=== PATIENT | female | born 1965 | race Caucasian/White ===

== ENCOUNTER 2017-04-22 14:30 | Emergency (ER) | payer OTHER ==
[~2017-04-22] VITALS: Ht 165.1 cm; Wt 113.0 kg
[2017-04-22 14:31] VITALS: Ht 165.1 cm; Wt 113.0 kg
[2017-04-22] MEDS ORDERED: SOD CHLORIDE 0.9% 1,000 ML IV STA (15:53)
--- NOTE | 2017-04-22 16:23 | RADRPT ---
PROCEDURE: XR Chest. CLINICAL INDICATION: Chest pain TECHNIQUE: Single frontal chest x-ray. COMPARISON: 06/12/2013 FINDINGS: The lungs are clear of acute infiltrates, edema, effusions, or masses.. The cardiomediastinal silho uette is unremarkable. The osseous structures are intact. IMPRESSION: No acute cardiopulmonary disease. RPTAT: CC .Rigo Frias MD, MD Date Time Electronically viewed and signed by .Rigo Frias MD, on 04/22/2017 16:23 .L/
[2017-04-22] MEDS ORDERED: METO-429 PO (16:34)
[2017-04-22] MEDS ORDERED: ASPI325T4 PO (16:35)
[2017-04-22 16:46] LABS: BASOPHILS % 0.5 % (0.0-2.0); EOSINOPHILS # 0.1 10^3/ul (0.0-0.5); EOSINOPHILS % 1.7 % (0.0-7.0); HEMATOCRIT 41.7 % (37.0-47.0); HEMOGLOBIN 14.2 g/dl (12.0-16.0); LYMPHOCYTES # 1.8 10^3/ul (0.8-2.9); LYMPHOCYTES % 21.2 % (15.0-51.0); MEAN CORPUSCULAR HEMOGLOBIN 27.3 pg (29.0-33.0); MEAN CORPUSCULAR HGB CONC 34.1 g/dl (32.0-37.0); MEAN CORPUSCULAR VOLUME 80.2 fl (82.0-101.0); MEAN PLATELET VOLUME 11.4 fl (7.4-10.4); MONOCYTE # 0.6 10^3/ul (0.3-0.9); MONOCYTES % 6.6 % (0.0-11.0); NEUTROPHIL # 5.8 10^3/ul (1.6-7.5); NEUTROPHILS % 69.8 % (39.0-77.0); PLATELET COUNT 235 10^3/UL (140-415); RED CELL DISTRIBUTION WIDTH 13.7 % (11.5-14.5); WHITE BLOOD COUNT 8.3 10^3/ul (4.8-10.8)
[2017-04-22 16:48] LABS: INR 0.91; PROTIME 12.3 Sec (12.2-14.2)
[2017-04-22 16:49] LABS: PARTIAL THROMBOPLASTIN TIME 29.4 Sec (25.0-35.0)
[2017-04-22 16:53] LABS: LACTIC ACID 1.8 mmol/L (0.5-2.0)
[2017-04-22 16:54] LABS: ALANINE AMINOTRANSFERASE 27 IU/L (13-69); ALBUMIN 4.3 g/dl (3.3-4.9); ALBUMIN/GLOBULIN RATIO 1.26; ALKALINE PHOSPHATASE 85 IU/L (42-121); AMYLASE 55 U/L (11-123); ANION GAP 21 (8-16); ASPARTATE AMINO TRANSFERASE 15 IU/L (15-46); BILIRUBIN,INDIRECT 0.1 mg/dl (0-1.1); BILIRUBIN,TOTAL 0.1 mg/dl (0.2-1.3); BLOOD UREA NITROGEN 16 mg/dl (7-20); CALCIUM 9.6 mg/dl (8.4-10.2); CARBON DIOXIDE 29 mmol/L (21-31); CHLORIDE 100 mmol/L (97-110); CREATINE KINASE 37 IU/L (23-200); GLUCOSE 92 mg/dl (70-220); POTASSIUM 4.2 mmol/L (3.5-5.1); SODIUM 146 mmol/L (135-144); TOTAL PROTEIN 7.7 g/dl (6.1-8.1)
[2017-04-22] MEDS ORDERED: HYDROmorphONE 1 MG/ML SYG IV STA ×2 (16:57→18:52)
[2017-04-22] MEDS ORDERED: ONDANSETRON 4 MG INJ IV STA ×2 (16:57→18:52)
[2017-04-22 17:05] LABS: AMMONIA < 9 umol/l (9-30)
[2017-04-22 17:06] LABS: CK-MB 0.25 ng/ml (0.0-2.4)
[2017-04-22 17:11] LABS: T3 UPTAKE 25.6 % (23.5-40.5)
[2017-04-22 17:13] LABS: TROPONIN-I < 0.012 ng/ml (0.00-0.12)
--- NOTE | 2017-04-22 18:00 | RADRPT ---
PROCEDURE: CT brain without contrast CLINICAL INDICATION: Altered mental status TECHNIQUE: CT of the brain without contrast was performed on a multidetector CT scanner, with multi planar reformats. One or more of the following dose reduction techniques were used: Automated expos ure control, adjustment in mA and / or kV according to patient size, use of iterative reconstructive technique. CTDIvol = 41 mGy; DLP = 720 mGy-cm. COMPARISON: None available FINDINGS: No acute intracranial hemorrhage is identified. No extra-axial fluid collection is seen. There is no mass effect. No midline shift is identified. Ventricles and sulci are within normal limits for size and configuration. The density of the brain is within normal limits. Medrano-white differentiation is preserved. Osseous structures are unremarkable. Mastoid air cells and imaged paranasal sinuses grossly clear. IMPRESSION: Unremarkable noncontrast CT of the brain. RPTAT: VV .Davon Flor MD, MD Date Time Electronically viewed and signed by .Davon Flor MD, on 04/22/2017 18:00 .O/
--- NOTE | 2017-04-22 18:07 | RADRPT ---
PROCEDURE: CT abdomen and pelvis without IV contrast. CLINICAL INDICATION: Abdominal pain TECHNIQUE: CT scan of the abdomen and pelvis without contrast was performed on the [employer] volumetric [address] scanner. The patient was scanned without intravenous contrast. Coronal and sagittal refo rmatted images were obtained from the axial source images. The CTDI vol is 23.19 mGy and the DLP is 1381.14 mGy-cm. COMPARISON: None. FINDINGS: CT abdomen: Mild dependent bibasilar atelectasis is seen. Focal ground-glass opacity in the lingula is seen. T he remaining lung bases are clear. The heart size is not enlarged and is without pericardial thicke linus or effusion. The liver is normal and density and is without focal mass or intrahepatic biliary dilatation. The li pari is mildly enlarged measuring 20.6 cm in size. The spleen is mildly enlarged measuring 13.5 cm i n size. The spleen is homogeneous in density. A small hiatal hernia is seen. The stomach is otherwi se grossly unremarkable. The pancreas as visualized is normal. Layering gallstones are seen. No c ommon bile duct dilatation is seen. The adrenal glands are symmetric and normal. The kidneys are sy mmetrically unremarkable as well. Residual contrast in the collecting systems is seen from prior con trast enhanced exam. A fat containing lesion in the left kidney is seen measuring 1.6 cm in size. N o renal calculus or obstructive uropathy or mass lesion is seen. The aorta is of normal in caliber. There is no retroperitoneal lymphadenopathy. The agustín hepatis region is clear. The large bowel is stool-filled. The small and large bowel and mesentery, as visua lized, are otherwise unremarkable. The normal appendix is identified. CT pelvis: The uterus is absent. The pelvic sidewalls and inguinal regions are clear. No pelvic mass, lymphad enopathy, or free fluid is seen. No acute inflammation is seen. The urinary bladder is within norm al limits. A sclerotic foci in the right iliac bone is seen measuring 6 mm in size and may represent a bone isl and. No osteolytic lesion is detected. IMPRESSION: 1. Focal ground-glass opacity in the lingula, questionable this represents scarring versus infiltra te. 2. No acute pathology in the abdomen and pelvis. 3. Stool filled large bowel. 4. Residual contrast in the bilateral collecting systems from a prior contrast enhanced exam. 5. Cholelithiasis. 6. Small fat containing lesion in the left kidney consistent with an angiomyolipoma. RPTAT: HPNM Guzman Zaidi Physician Date Time Electronically viewed and signed by Guzman Zaidi Physician on 04/22/2017 18:07 /
--- NOTE | 2017-04-22 18:10 | ERD ---
ER Documentation Chief Complaint Date/Time DATE: 04/22/17 TIME: 18:06 Chief Complaint n/v x 1 week and throat pain/swelling x yesterday HPI This is a 51-year-old female that presents to the emergency department complaining of 1 week of generalized myalgias, nausea and one episode of nonbloody nonbilious emesis. The patient indicates that yesterday when she awoke she had difficulty swallowing and a sore throat. She went to [facility] and radiographic imaging indicated there is a thyroid mass. She stated they did a CT scan of the neck with contrast and indicated there is a mass in the thyroid of unknown etiology and for her to follow-up with her primary care physician. Her PCP is Dr. Lisandro Short. She was unable to get an appointment today and therefore came to the emergency department to be further evaluated as she was concerned with worsening of her symptoms as she awoke this morning with swelling of her feet. She denies any calf tenderness. She is no shortness of breath at rest or exertion. She indicates that the difficulty in swallowing has improved and she denies any swelling around the neck. She has had no fevers no shaking or chills. She has had decreased urinary output over the past several days and bilateral flank pain. Her mother of lung carcinoma and her father of gallbladder carcinoma. She denies any chest pain or pressure that radiates to the neck arm back or jaw she has no shortness of breath at rest or exertion peer ROS All systems reviewed and are negative except as per history of present illness. Medications Home Meds Reported Medications Aspirin* (Aspirin*) 325 Mg Tablet, 325 MG PO DAILY, TAB 04/22/17 Metoprolol Tartrate* (Lopressor*) 50 Mg Tab, 50 MG PO BID, #60 TAB 04/22/17 Allergies Allergies: Coded Allergies: morphine (Verified Allergy, Unknown, ITCHY,HIVES, 04/22/17) PMhx/Soc History of Surgery: Yes (HYSTERECTOMY, ) Hx Cardiac Disorders: Yes (HTN) Hx Alcohol Use: No Hx Substance Use: No Hx Tobacco Use: No Physical Exam Vitals Vital Signs Date Time Temp Pulse Resp B/P Pulse Ox O2 Delivery O2 Flow Rate FiO2 04/22/17 18:33 98.6 62 17 127/85 100 Room Air 04/22/17 16:59 60 18 107/73 100 Room Air 04/22/17 14:31 98.9 68 19 135/81 100 Physical Exam Constitutional:Well-developed. Well-nourished. HEENT:Normocephalic. Atraumatic.Pupils were equal round reactive to light. Moist mucous membranes.No tonsillar exudates. Funduscopy exam shows sharp optic disc bilaterally and venous pulsations are present. Neck: No nuchal rigidity. No lymphadenopathy. No posterior cervical spine tenderness or step-offs. Thyroid was palpable with no subcutaneous emphysema or expanding neck hematoma or tenderness. No erythremia of the neck. Respiratory: Not using accessory muscles of respiration.Lungs were clear to auscultation bilaterally. No rhonchi. No rales. No wheezing. Cardiovascular: Regular rate regular rhythm.No murmurs. No rubs were appreciated.S1, S2 normal. Distal pulses are palpable 2+ bilaterally. GI: Abdomen was soft. Nontender. Non Distended. No pulsatile abdominal masses or bruits. No rebound. No guarding. Bowel sounds were present and normal. Bilateral CVA tenderness Muscle skeletal: Full range of motion of both the upper and lower extremities bilaterally.Normal muscle tone.No assymetrical calf tenderness or swelling. 1+ pitting edema the dorsal aspects of the bilateral feet extending to the distal third of the lower extremity. Skin: No petechia, no purpura. No lesions on the palms or the soles of the feet. No maculopapular rash. NEURO: Patient was alert, awake, orientated x3.No facial droop. Gait observed and normal with no ataxia.Speech had regular rate and rhythm. No focal neurological deficits. Result Diagram: 04/22/17 1615 04/22/17 1615 Results 24 hrs Laboratory Tests Test 04/22/17 16:15 White Blood Count 8.310^3/ul Red Blood Count 5.2010^6/ul Hemoglobin 14.2g/dl Hematocrit 41.7% Mean Corpuscular Volume 80.2fl Mean Corpuscular Hemoglobin 27.3pg Mean Corpuscular Hemoglobin Concent 34.1g/dl Red Cell Distribution Width 13.7% Platelet Count 45527^3/UL Mean Platelet Volume 11.4fl Neutrophils % 69.8% Lymphocytes % 21.2% Monocytes % 6.6% Eosinophils % 1.7% Basophils % 0.5% Nucleated Red Blood Cells % 0.0/100WBC Neutrophils # 5.810^3/ul Lymphocytes # 1.810^3/ul Monocytes # 0.610^3/ul Eosinophils # 0.110^3/ul Basophils # 0.010^3/ul Nucleated Red Blood Cells # 0.010^3/ul Prothrombin Time 12.3Sec Prothrombin Time Ratio 1.0 INR International Normalized Ratio 0.91 Activated Partial Thromboplast Time 29.4Sec Sodium Level 146mmol/L Potassium Level 4.2mmol/L Chloride Level 100mmol/L Carbon Dioxide Level 29mmol/L Anion Gap 21 Blood Urea Nitrogen 16mg/dl Creatinine 1.00mg/dl Glucose Level 92mg/dl Hemoglobin A1c 5.7% Lactic Acid Level 1.8mmol/L Calcium Level 9.6mg/dl Total Bilirubin 0.1mg/dl Direct Bilirubin 0.00mg/dl Indirect Bilirubin 0.1mg/dl Aspartate Amino Transf (AST/SGOT) 15IU/L Alanine Aminotransferase (ALT/SGPT) 27IU/L Alkaline Phosphatase 85IU/L Ammonia < 9umol/l Creatine Kinase 37IU/L Creatine Kinase Index 0.7 Creatinine Kinase MB (Mass) 0.25ng/ml Troponin I < 0.012ng/ml Total Protein 7.7g/dl Albumin 4.3g/dl Globulin 3.40g/dl Albumin/Globulin Ratio 1.26 Amylase Level 55U/L Lipase 97U/L Free Thyroxine Index 2.46ug/ml Thyroxine (T4) 9.6ug/dl Triiodothyronine (T3) Uptake 25.6% Current Medications Medications (Trade) Dose Ordered Sig/Elizabeth Route PRN Reason Start Time Stop Time Status Last Admin Dose Admin Sodium Chloride (NS) 1,000 ml @ 1,000 mls/hr Q1H STAT IV 04/22/17 15:53 04/22/17 16:52 DC 04/22/17 16:35 Ondansetron HCl (Zofran Inj) 4 mg ONCE STAT IV 04/22/17 16:57 04/22/17 16:59 DC 04/22/17 17:14 Hydromorphone HCl (Dilaudid) 1 mg ONCE STAT IV 04/22/17 16:57 04/22/17 16:59 DC 04/22/17 17:14 Procedures/MDM This patient presented to the emergency department generalized myalgias abdominal pain nausea vomiting and a recent thyroid mass. The patient was immediately placed in a cribber continuous pulse oximetry and IV access was established by nursing staff . I obtained a 12-lead EKG tracing to rule out atypical myocardial infarction. 12 Lead EKG tracing ordered and reviewed by myself showed: Normal sinus rhythm of 62 bpm and no arrhythmia. NE interval normal. QRS duration normal. No ST segment elevation No ST segment depression. No changes consistent with acute ischemia. I did not repeat the patient's CT scan of her neck she already had the results of the thyroid mass. Given her symptoms I did obtain a CT scan of the patient' s head reviewed by myself the radiologist as well as a CT of the abdomen and pelvis which showed no acute intracerebral hemorrhage mass-effect or midline shift. The CT of the abdomen and pelvis indicated followin. Focal ground-glass opacity in the lingula, questionable this represents scarring versus infiltrate. 2. No acute pathology in the abdomen and pelvis. 3. Stool filled large bowel. 4. Residual contrast in the bilateral collecting systems from a prior contrast enhanced exam. 5. Cholelithiasis. 6. Small fat containing lesion in the left kidney consistent with an angiomyolipoma. I obtained a hemoglobin A1c and there is no onset of new onset diabetes. The patient's thyroid panel was normal. The patient received IV antiemetics and was able to tolerate p.o. intake. The patient had received IV Dilaudid with improvement of her pain. The patient had no physical exam findings to suggest peripheral edema from nephrotic syndrome or deep vein thrombosis. The patient's airway was intact and I did feel she can follow up on an outpatient basis with her primary care physician Dr. Short for further etiology into the thyroid mass for biopsy. The patient was discharged home in fair condition. They were instructed to return to the emergency department at any time if there was any worsening of their condition. The patient stated they would follow up with their PCP in the next 24-48 hours to initiate a suitable medication regimen under the care of their PCP as well as to allow their PCP to monitor any drug reactions. The patient was discharged home with prescriptions after they gave informed consent to the new medication. They were also fully informed by myself on the adverse effects and adverse drug interactions in order to provide adequate safeguards to prevent possible adverse reactions to medications. Departure Diagnosis: Primary Impression: Nausea and vomiting Vomiting type: unspecified Vomiting Intractability: intractable Qualified Code: R11.2 - Intractable vomiting with nausea, unspecified vomiting type Additional Impressions: Flank pain Peripheral edema Condition: Fair JOSEY EVANGELISTA Apr 22, 2017 18:10
[2017-04-22] MEDS ORDERED: ONDA4TAB14 PO (18:46)
[2017-04-22 19:18] LABS: ADD UMIC YES; UR ASCORBIC ACID NEGATIVE (NEGATIVE); UR BACTERIA FEW /HPF (NONE SEEN); UR BILIRUBIN (Dip) NEGATIVE (NEGATIVE); UR BLOOD (Dip) NEGATIVE (NEGATIVE); UR CLARITY SLIGHTLY CLOUDY (CLEAR); UR COLOR YELLOW (YELLOW); UR GLUCOSE (Dip) NEGATIVE (NEGATIVE); UR KETONES (Dip) NEGATIVE (NEGATIVE); UR LEUKOCYTE ESTERASE (Dip) 2+ Leu/ul (NEGATIVE); UR NITRITE (Dip) NEGATIVE (NEGATIVE); UR RBC 1 /HPF (0-5); UR SPECIFIC GRAVITY (Dip) 1.021 (1.003-1.030); UR SQUAMOUS EPITHELIAL CELL FEW /HPF (FEW); UR TOTAL PROTEIN (Dip) NEGATIVE (NEGATIVE); UR UROBILINOGEN (Dip) NEGATIVE (NEGATIVE)
[2017-04-22 19:59] VITALS: BP 121/87; PULSE 71; RESP 17; TEMP 98.6
== END 2017-04-22 20:00 | disposition home or self-care (01) ==
LOC: E/R 14:30
DX: R11.2 Nausea with vomiting, unspecified (principal); R10.9 Unspecified abdominal pain; R60.0 Localized edema; I10 Essential (primary) hypertension; R41.82 Altered mental status, unspecified; Z79.82 Long term (current) use of aspirin
CPT/HCPCS: 36415; 70450; 71010; 74176; 80053; 81001; 82140; 82150; 82550; 82553; 83036; 83605; 83690; 84436; 84479; 84484; 85025; 85610; 85730; 87086; 93005; 96374; 96375; 96376; J1170; J2405; J7030; Z7502